=== PATIENT | male | born 1955 | race Two or more races ===

== ENCOUNTER 2018-04-17 17:03 | Inpatient (IN) | payer MEDICARE, MEDICAID ==
[~2018-04-17] VITALS: Ht 162.6 cm; Wt 83.6 kg
[2018-04-17 20:00] VITALS: BP 164/64
[2018-04-17] MEDS ORDERED: LISINOPRIL20 MG ORAL (20:23)
[2018-04-17] MEDS ORDERED: BYSTOLIC5 MG ORAL (20:23)
[2018-04-17] MEDS ORDERED: COREG25 MG ORAL (20:23)
[2018-04-17] MEDS ORDERED: ASPIRIN-LOW81 MG ORAL (20:23)
[2018-04-17] MEDS: Heparin 5000 units/ml inj SUBQ SCH (20:49)
[2018-04-17] MEDS: Carvedilol 25mg Tab ORAL SCH (20:51)
[2018-04-17 23:56] VITALS: BP 141/52
[2018-04-18 04:00] VITALS: BP 142/66
[2018-04-18] MEDS: NovoLOG Insulin Flexpen SUBQ SCH ×4 (05:52→20:35)
[2018-04-18 07:17] LABS: BASOPHILS % (AUTO) 1.1 % (0.0-2.0); HEMATOCRIT 35.1 % (42.0-52.0); HEMOGLOBIN 11.6 G/DL (14.2-18.0); LYMPHOCYTES % (AUTO) 13.3 % (20.0-45.0); MEAN CORPUSCULAR VOLUME 92 FL (80-99); MONOCYTES % (AUTO) 6.6 % (1.0-10.0); PLATELET COUNT 196 K/UL (150-450); RED BLOOD COUNT 3.82 M/UL (4.70-6.10); RED CELL DISTRIBUTION WIDTH 14.4 % (11.6-14.8); WHITE BLOOD COUNT 9.1 K/UL (4.8-10.8)
[2018-04-18 07:51] LABS: ALANINE AMINOTRANSFERASE 13 U/L (12-78); ALBUMIN 3.5 G/DL (3.4-5.0); ALBUMIN/GLOBULIN RATIO 0.8 (1.0-2.7); ALKALINE PHOSPHATASE 76 U/L (46-116); ANION GAP 10 mmol/L (5-15); ASPARTATE AMINO TRANSFERASE 11 U/L (15-37); BILIRUBIN,TOTAL 0.3 MG/DL (0.2-1.0); BLOOD UREA NITROGEN 69 mg/dL (7-18); CALCIUM 8.3 MG/DL (8.5-10.1); CARBON DIOXIDE 30 MMOL/L (21-32); CHLORIDE 99 MMOL/L (98-107); CREATININE 10.9 MG/DL (0.55-1.30); PHOSPHORUS 3.5 MG/DL (2.5-4.9); POTASSIUM 4.7 MMOL/L (3.5-5.1); SODIUM 138 MMOL/L (136-145)
[2018-04-18 08:00] VITALS: BP 136/61
[2018-04-18] MEDS: Aspirin Baby 81mg ORAL SCH (08:23)
[2018-04-18] MEDS: Sensipar 30mg Tab ORAL SCH (08:23)
[2018-04-18] MEDS: Carvedilol 25mg Tab ORAL SCH ×2 (08:23→20:53)
[2018-04-18] MEDS: Nephrovite tab (Rena-Vite) ORAL SCH (08:23)
[2018-04-18] MEDS: Lisinopril 20mg tab ORAL SCH (08:24)
[2018-04-18] MEDS: Heparin 5000 units/ml inj SUBQ SCH ×3 (08:27→21:00)
[2018-04-18] MEDS ORDERED: Lanthanum 1000mg tab ORAL SCH (09:00)
--- NOTE | 2018-04-18 09:58 | Consultation ---
Consult Note Consult Note Icelandic speaker- history taken via screw down on HD for over 10 years poor historian graft left arm DM and HTN had eye surgeries examined data reviewed Assessment/Plan ESRD HD in am BP and HR check / monitor Per orders Tyler Donis MD Apr 18, 2018 09:58
--- NOTE | 2018-04-18 10:53 | Cardiac Electrophysiology PN ---
Subjective Subjective [id number] Objective Last 24 Hour Vital Signs Date Time Temp Pulse Resp B/P (MAP) Pulse Ox O2 Delivery O2 Flow Rate FiO2 04/18/18 09:39 Room Air 04/18/18 08:24 136/61 04/18/18 08:23 76 136/61 04/18/18 08:00 98.4 76 18 136/61 (86) 96 04/18/18 08:00 69 04/18/18 04:00 98.3 70 18 142/66 (91) 98 04/18/18 04:00 67 04/18/18 00:00 69 04/17/18 23:56 97.9 71 20 141/52 (81) 98 04/17/18 20:51 72 165/85 04/17/18 20:00 97.9 74 21 164/64 (97) 99 04/17/18 20:00 70 04/17/18 19:12 Room Air Intake and Output 04/17/18 04/18/18 18:59 06:59 Intake Total 260 ml Balance 260 ml Intake Oral 260 ml # Voids 1 Laboratory Tests Test 04/18/18 05:42 White Blood Count 9.1 K/UL (4.8-10.8) Red Blood Count 3.82 M/UL (4.70-6.10) L Hemoglobin 11.6 G/DL (14.2-18.0) L Hematocrit 35.1 % (42.0-52.0) L Mean Corpuscular Volume 92 FL (80-99) Mean Corpuscular Hemoglobin 30.4 PG (27.0-31.0) Mean Corpuscular Hemoglobin Concent 33.1 G/DL (32.0-36.0) Red Cell Distribution Width 14.4 % (11.6-14.8) Platelet Count 196 K/UL (150-450) Mean Platelet Volume 7.8 FL (6.5-10.1) Neutrophils (%) (Auto) 77.0 % (45.0-75.0) H Lymphocytes (%) (Auto) 13.3 % (20.0-45.0) L Monocytes (%) (Auto) 6.6 % (1.0-10.0) Eosinophils (%) (Auto) 2.0 % (0.0-3.0) Basophils (%) (Auto) 1.1 % (0.0-2.0) Sodium Level 138 MMOL/L (136-145) Potassium Level 4.7 MMOL/L (3.5-5.1) Chloride Level 99 MMOL/L (98-107) Carbon Dioxide Level 30 MMOL/L (21-32) Anion Gap 10 mmol/L (5-15) Blood Urea Nitrogen 69 mg/dL (7-18) H Creatinine 10.9 MG/DL (0.55-1.30) H Estimat Glomerular Filtration Rate 4.8 mL/min (>60) Glucose Level 98 MG/DL (74-106) Hemoglobin A1c 5.6 % (4.3-6.0) Calcium Level 8.3 MG/DL (8.5-10.1) L Phosphorus Level 3.5 MG/DL (2.5-4.9) Magnesium Level 2.7 MG/DL (1.8-2.4) H Total Bilirubin 0.3 MG/DL (0.2-1.0) Aspartate Amino Transf (AST/SGOT) 11 U/L (15-37) L Alanine Aminotransferase (ALT/SGPT) 13 U/L (12-78) Alkaline Phosphatase 76 U/L (46-116) Troponin I 0.039 ng/mL (0.000-0.056) C-Reactive Protein, Quantitative 0.7 mg/dL (0.00-0.90) Total Protein 8.0 G/DL (6.4-8.2) Albumin 3.5 G/DL (3.4-5.0) Globulin 4.5 g/dL Albumin/Globulin Ratio 0.8 (1.0-2.7) Srikanth Jones MD Apr 18, 2018 10:53
[2018-04-18 12:00] VITALS: BP 140/63
--- NOTE | 2018-04-18 12:37 | Consultation ---
History of Present Illness General Date patient seen: Apr 18, 2018 Present Illness HPI 62 year old male with hx of ESRF on HD for over 10 years, poor historian, graft left arm, DM and HTN was taken by paramedics to [place] with CC of syncope. Pt is poor historian and doesn't know much. (medical records accompanying pt is entails only case management notes and efforts and doesn't have neither physician note, nor test study results). Allergies: Coded Allergies: NO KNOWN ALLERGIES (Verified Allergy, Unknown, 04/17/18) Medication History Scheduled Aspirin (Aspirin EC), 81 MG ORAL DAILY, (Reported) Carvedilol (Coreg), 25 MG ORAL EVERY 12 HOURS, (Reported) Lisinopril (Lisinopril*), 20 MG ORAL DAILY, (Reported) Nebivolol Hcl (Bystolic), 5 MG ORAL DAILY, (Reported) Patient History Healthcare decision maker N Resuscitation status Full Code Advanced Directive on File No Past Medical/Surgical History Past Medical/Surgical History: (1) Diabetes mellitus (2) ESRD (end stage renal disease) (3) History of hypertension Review of Systems All Other Systems: negative except mentioned in HPI Physical Exam General Appearance: WD/WN Lines, tubes and drains: peripheral HEENT: normocephalic, atraumatic Neck: non-tender, normal alignment Respiratory/Chest: chest wall non-tender, lungs clear Breasts: no masses Cardiovascular/Chest: normal peripheral pulses Abdomen: normal bowel sounds, non tender Genitourinary/Rectal: normal genital exam Extremities: normal range of motion Skin Exam: normal pigmentation Last 24 Hour Vital Signs Date Time Temp Pulse Resp B/P (MAP) Pulse Ox O2 Delivery O2 Flow Rate FiO2 04/18/18 12:00 98.1 67 18 140/63 (88) 98 04/18/18 09:39 Room Air 04/18/18 08:24 136/61 04/18/18 08:23 76 136/61 04/18/18 08:00 98.4 76 18 136/61 (86) 96 04/18/18 08:00 69 04/18/18 04:00 98.3 70 18 142/66 (91) 98 04/18/18 04:00 67 04/18/18 00:00 69 04/17/18 23:56 97.9 71 20 141/52 (81) 98 04/17/18 20:51 72 165/85 04/17/18 20:00 97.9 74 21 164/64 (97) 99 04/17/18 20:00 70 04/17/18 19:12 Room Air Intake and Output 04/17/18 04/18/18 19:00 07:00 Intake Total 260 ml Balance 260 ml Intake Oral 260 ml # Voids 1 Laboratory Tests Test 04/18/18 05:42 White Blood Count 9.1 K/UL (4.8-10.8) Red Blood Count 3.82 M/UL (4.70-6.10) L Hemoglobin 11.6 G/DL (14.2-18.0) L Hematocrit 35.1 % (42.0-52.0) L Mean Corpuscular Volume 92 FL (80-99) Mean Corpuscular Hemoglobin 30.4 PG (27.0-31.0) Mean Corpuscular Hemoglobin Concent 33.1 G/DL (32.0-36.0) Red Cell Distribution Width 14.4 % (11.6-14.8) Platelet Count 196 K/UL (150-450) Mean Platelet Volume 7.8 FL (6.5-10.1) Neutrophils (%) (Auto) 77.0 % (45.0-75.0) H Lymphocytes (%) (Auto) 13.3 % (20.0-45.0) L Monocytes (%) (Auto) 6.6 % (1.0-10.0) Eosinophils (%) (Auto) 2.0 % (0.0-3.0) Basophils (%) (Auto) 1.1 % (0.0-2.0) Sodium Level 138 MMOL/L (136-145) Potassium Level 4.7 MMOL/L (3.5-5.1) Chloride Level 99 MMOL/L (98-107) Carbon Dioxide Level 30 MMOL/L (21-32) Anion Gap 10 mmol/L (5-15) Blood Urea Nitrogen 69 mg/dL (7-18) H Creatinine 10.9 MG/DL (0.55-1.30) H Estimat Glomerular Filtration Rate 4.8 mL/min (>60) Glucose Level 98 MG/DL (74-106) Hemoglobin A1c 5.6 % (4.3-6.0) Calcium Level 8.3 MG/DL (8.5-10.1) L Phosphorus Level 3.5 MG/DL (2.5-4.9) Magnesium Level 2.7 MG/DL (1.8-2.4) H Total Bilirubin 0.3 MG/DL (0.2-1.0) Aspartate Amino Transf (AST/SGOT) 11 U/L (15-37) L Alanine Aminotransferase (ALT/SGPT) 13 U/L (12-78) Alkaline Phosphatase 76 U/L (46-116) Troponin I 0.039 ng/mL (0.000-0.056) C-Reactive Protein, Quantitative 0.7 mg/dL (0.00-0.90) Total Protein 8.0 G/DL (6.4-8.2) Albumin 3.5 G/DL (3.4-5.0) Globulin 4.5 g/dL Albumin/Globulin Ratio 0.8 (1.0-2.7) L Height (Feet): 5 Height (Inches): 4.00 Weight (Pounds): 184 Medications Current Medications Medications (Trade) Dose Ordered Sig/[place] Route PRN Reason Start Time Stop Time Status Last Admin Dose Admin Acetaminophen (Tylenol) 650 mg Q6H PRN ORAL Mild Pain/Temp > 100.5 04/17/18 23:45 05/17/18 23:44 Aspirin (ASA) 81 mg DAILY ORAL 04/18/18 09:00 05/18/18 08:59 04/18/18 08:23 Atorvastatin Calcium (Lipitor) 10 mg BEDTIME ORAL 04/18/18 21:00 05/18/18 20:59 Carvedilol (Coreg) 25 mg EVERY 12 HOURS ORAL 04/17/18 21:00 05/17/18 20:59 04/18/18 08:23 Cinacalcet (Sensipar) 30 mg DAILY ORAL 04/18/18 09:00 05/18/18 08:59 04/18/18 08:23 Clonidine HCl (Catapres Tab) 0.1 mg Q4H PRN ORAL For High Blood Pressure 04/17/18 20:15 05/17/18 20:14 Dextrose (Dextrose 50%) 25 ml Q30M PRN IV Hypoglycemia 04/17/18 23:45 05/17/18 23:44 Dextrose (Dextrose 50%) 50 ml Q30M PRN IV Hypoglycemia 04/17/18 23:45 05/17/18 23:44 Folic Acid (Folate) 1 mg DAILY ORAL 04/18/18 09:00 05/18/18 08:59 04/18/18 08:24 Heparin Sodium (Porcine) (Heparin 5000 units/ml) 5,000 units EVERY 12 HOURS SUBQ 04/17/18 21:00 05/17/18 20:59 04/18/18 08:27 Insulin Aspart (NovoLOG) BEFORE MEALS AND HS SUBQ 04/18/18 06:30 05/18/18 06:29 Lisinopril (Prinivil) 20 mg DAILY ORAL 04/18/18 09:00 05/18/18 08:59 04/18/18 08:24 Sevelamer Carbonate (Renvela) 800 mg THREE TIMES A DAY ORAL 04/18/18 09:00 05/18/18 08:59 04/18/18 12:08 Vitamin B Complex/ Vit C/Folic Acid (Nephrovite) 1 tab DAILY ORAL 04/18/18 09:00 05/18/18 08:59 04/18/18 08:23 Assessment/Plan Problem List: (1) Acute encephalopathy ICD Codes: G93.40 - Encephalopathy, unspecified SNOMED: 45028663, 785086489 (2) History of hypertension ICD Codes: Z86.79 - Personal history of other diseases of the circulatory system SNOMED: 117822678 (3) ESRD (end stage renal disease) ICD Codes: N18.6 - End stage renal disease SNOMED: 86097333 (4) Diabetes mellitus ICD Codes: E11.9 - Type 2 diabetes mellitus without complications SNOMED: 46706784 (5) Poor historian ICD Codes: Z78.9 - Other specified health status SNOMED: 092531409 Assessment/Plan echo, doppler of carotid artery HD by nephrology sliding scale diabetic diet symptomatic treatment Margarette Ortiz MD Apr 18, 2018 12:37
[2018-04-18 16:00] VITALS: BP 157/67
[2018-04-18] MEDS ORDERED: TRADJENTA5 MG PO ×2 (18:14→18:21)
[2018-04-18] MEDS ORDERED: RENVELA800 MG ORAL (18:25)
[2018-04-18] MEDS ORDERED: FULL SPECTRUM0.8 MG PO (18:25)
[2018-04-18] MEDS ORDERED: SIMVASTATIN40 MG ORAL (18:25)
--- NOTE | 2018-04-18 19:45 | Consultation ---
DATE OF CONSULTATION: 04/18/2018 CARDIOLOGY CONSULTATION CONSULTING PHYSICIAN: Srikanth Wise M.D. REFERRING PHYSICIAN: Vic Luu M.D. REASON FOR CONSULTATION: Hypertension and the patient with syncope. HISTORY OF PRESENT ILLNESS: The patient is a 62-year-old gentleman with history of hypertension, diabetes, end-stage renal disease, on hemodialysis, who was taken to [facility] after the patient had a syncopal episode. The patient was then transferred to [facility]. At the time of my evaluation, the patient denies any chest pain, palpitation, or shortness of breath. The syncope was during dialysis, but he did not have any chest pain or shortness of breath. No fever or cough. The patient denies any prior myocardial infarction or coronary artery disease. REVIEW OF SYSTEMS: Review of systems was negative other than what was mentioned in the history of present illness. PAST MEDICAL HISTORY: As mentioned above. FAMILY HISTORY: Noncontributory. SOCIAL HISTORY: He does not smoke or drink alcohol. PHYSICAL EXAMINATION: VITAL SIGNS: Blood pressure is 136/61, pulse is 70, respirations 18, and temperature 98.4. HEAD AND NECK: Showed no JVD. LUNGS: Clear. CARDIOVASCULAR: Shows regular S1 and S2 with no gallop or murmur. ABDOMEN: Soft. EXTREMITIES: No pitting edema. LABORATORY DATA: White count of 9.5, hemoglobin 11.6, hematocrit 35.1, and platelet count of 196,000. Sodium 138, potassium 4.7, BUN of 69, hematocrit of 10.9, and glucose of 98. The first troponin is negative. ASSESSMENT AND PLAN: 1. Status post syncope. Troponin at [place] as well as here is negative. The patient was ruled out for myocardial infarction. We will repeat EKG and get an echocardiogram. He will have orthostatic vital signs for further evaluation. 2. Hypertension. Continue lisinopril 20 mg daily, Coreg 25 mg b.i.d., and hemodialysis. 3. End-stage renal disease, on hemodialysis. 4. Hyperlipidemia, on Lipitor. Thank you very much, Dr. Luu, for allowing me to participate in the care of this patient. Please do not hesitate to contact for any questions regarding my evaluation. Srikanth Wise M.D. DR: Shahab JOB#: [id number] CC:
[2018-04-18 20:00] VITALS: BP 150/61
--- NOTE | 2018-04-18 20:03 | History & Physical ---
History and Physical History & Physicial dictated for Int Med-Dr Luu no. [id number]. Aguila Hartman MD Apr 18, 2018 20:03
--- NOTE | 2018-04-18 22:48 | Consultation ---
History of Present Illness Present Illness HPI 62 year old male with hx of depression, ESRF , graft left arm, DM and HTN was taken by paramedics to [place] with CC of syncope. the pt is Macanese speaking and was not able to provide a meaningful hx. the pt c/o low energy and depression. the pt in addition has poor cognition. he has poor insight. Allergies: Coded Allergies: NO KNOWN ALLERGIES (Verified Allergy, Unknown, 04/17/18) Medication History Scheduled Aspirin (Aspirin EC), 81 MG ORAL DAILY, (Reported) Carvedilol (Coreg), 25 MG ORAL EVERY 12 HOURS, (Reported) Folic Acid/Vitamin B Comp W-C (Full Spectrum B With Vit C Tab), 0.8 MG PO DAILY, (Reported) Linagliptin (Tradjenta), 5 MG PO DAILY, (Reported) Lisinopril (Lisinopril*), 20 MG ORAL DAILY, (Reported) Nebivolol Hcl (Bystolic), 5 MG ORAL DAILY, (Reported) Sevelamer Carbonate (Renvela), 800 MG ORAL THREE TIMES A DAY, (Reported) Simvastatin (Zocor), 40 MG ORAL BEDTIME, (Reported) Patient History Limited by: medical condition History Provided By: Patient, Medical Record, PMD Healthcare decision maker N Resuscitation status Full Code Advanced Directive on File No Past Medical/Surgical History Past Medical/Surgical History: (1) Syncope (2) Diabetes mellitus (3) ESRD (end stage renal disease) (4) History of hypertension (5) Poor historian (6) Acute encephalopathy Review of Systems Psychiatric: Reports: prior hx, anxiety, depressed feelings Physical Exam General Appearance: no apparent distress, alert, obese Neurologic: depressed affect Last 24 Hour Vital Signs Date Time Temp Pulse Resp B/P (MAP) Pulse Ox O2 Delivery O2 Flow Rate FiO2 04/18/18 20:53 71 150/61 04/18/18 20:00 98.4 71 18 150/61 (90) 97 04/18/18 20:00 70 04/18/18 16:00 98.1 76 18 157/67 (97) 99 04/18/18 16:00 68 04/18/18 12:00 68 04/18/18 12:00 98.1 67 18 140/63 (88) 98 04/18/18 09:39 Room Air 04/18/18 08:24 136/61 04/18/18 08:23 76 136/61 04/18/18 08:00 98.4 76 18 136/61 (86) 96 04/18/18 08:00 69 04/18/18 04:00 98.3 70 18 142/66 (91) 98 04/18/18 04:00 67 04/18/18 00:00 69 04/17/18 23:56 97.9 71 20 141/52 (81) 98 Intake and Output 04/17/18 04/18/18 19:00 07:00 Intake Total 260 ml Balance 260 ml Intake Oral 260 ml # Voids 1 Laboratory Tests Test 04/18/18 05:42 White Blood Count 9.1 K/UL (4.8-10.8) Red Blood Count 3.82 M/UL (4.70-6.10) L Hemoglobin 11.6 G/DL (14.2-18.0) L Hematocrit 35.1 % (42.0-52.0) L Mean Corpuscular Volume 92 FL (80-99) Mean Corpuscular Hemoglobin 30.4 PG (27.0-31.0) Mean Corpuscular Hemoglobin Concent 33.1 G/DL (32.0-36.0) Red Cell Distribution Width 14.4 % (11.6-14.8) Platelet Count 196 K/UL (150-450) Mean Platelet Volume 7.8 FL (6.5-10.1) Neutrophils (%) (Auto) 77.0 % (45.0-75.0) H Lymphocytes (%) (Auto) 13.3 % (20.0-45.0) L Monocytes (%) (Auto) 6.6 % (1.0-10.0) Eosinophils (%) (Auto) 2.0 % (0.0-3.0) Basophils (%) (Auto) 1.1 % (0.0-2.0) Sodium Level 138 MMOL/L (136-145) Potassium Level 4.7 MMOL/L (3.5-5.1) Chloride Level 99 MMOL/L (98-107) Carbon Dioxide Level 30 MMOL/L (21-32) Anion Gap 10 mmol/L (5-15) Blood Urea Nitrogen 69 mg/dL (7-18) H Creatinine 10.9 MG/DL (0.55-1.30) H Estimat Glomerular Filtration Rate 4.8 mL/min (>60) Glucose Level 98 MG/DL (74-106) Hemoglobin A1c 5.6 % (4.3-6.0) Calcium Level 8.3 MG/DL (8.5-10.1) L Phosphorus Level 3.5 MG/DL (2.5-4.9) Magnesium Level 2.7 MG/DL (1.8-2.4) H Total Bilirubin 0.3 MG/DL (0.2-1.0) Aspartate Amino Transf (AST/SGOT) 11 U/L (15-37) L Alanine Aminotransferase (ALT/SGPT) 13 U/L (12-78) Alkaline Phosphatase 76 U/L (46-116) Troponin I 0.039 ng/mL (0.000-0.056) C-Reactive Protein, Quantitative 0.7 mg/dL (0.00-0.90) Total Protein 8.0 G/DL (6.4-8.2) Albumin 3.5 G/DL (3.4-5.0) Globulin 4.5 g/dL Albumin/Globulin Ratio 0.8 (1.0-2.7) L Height (Feet): 5 Height (Inches): 4.00 Weight (Pounds): 184 Medications Current Medications Medications (Trade) Dose Ordered Sig/[place] Route PRN Reason Start Time Stop Time Status Last Admin Dose Admin Acetaminophen (Tylenol) 650 mg Q6H PRN ORAL Mild Pain/Temp > 100.5 04/17/18 23:45 05/17/18 23:44 Aspirin (ASA) 81 mg DAILY ORAL 04/18/18 09:00 05/18/18 08:59 04/18/18 08:23 Atorvastatin Calcium (Lipitor) 10 mg BEDTIME ORAL 04/18/18 21:00 05/18/18 20:59 04/18/18 20:53 Carvedilol (Coreg) 25 mg EVERY 12 HOURS ORAL 04/17/18 21:00 05/17/18 20:59 04/18/18 20:53 Cinacalcet (Sensipar) 30 mg DAILY ORAL 04/18/18 09:00 05/18/18 08:59 04/18/18 08:23 Clonidine HCl (Catapres Tab) 0.1 mg Q4H PRN ORAL For High Blood Pressure 04/17/18 20:15 05/17/18 20:14 Dextrose (Dextrose 50%) 25 ml Q30M PRN IV Hypoglycemia 04/17/18 23:45 05/17/18 23:44 Dextrose (Dextrose 50%) 50 ml Q30M PRN IV Hypoglycemia 04/17/18 23:45 05/17/18 23:44 Folic Acid (Folate) 1 mg DAILY ORAL 04/18/18 09:00 05/18/18 08:59 04/18/18 08:24 Heparin Sodium (Porcine) (Heparin 5000 units/ml) 5,000 units EVERY 12 HOURS SUBQ 04/17/18 21:00 05/17/18 20:59 04/18/18 08:27 Insulin Aspart (NovoLOG) BEFORE MEALS AND HS SUBQ 04/18/18 06:30 05/18/18 06:29 Lisinopril (Prinivil) 20 mg DAILY ORAL 04/18/18 09:00 05/18/18 08:59 04/18/18 08:24 Patient Own Medication (Patient's Own Med) 1 ea DAILY ORAL 04/19/18 09:00 05/19/18 08:59 Sevelamer Carbonate (Renvela) 800 mg THREE TIMES A DAY ORAL 04/18/18 09:00 05/18/18 08:59 04/18/18 17:17 Vitamin B Complex/ Vit C/Folic Acid (Nephrovite) 1 tab DAILY ORAL 04/18/18 09:00 05/18/18 08:59 04/18/18 08:23 Assessment/Plan Problem List: (1) Major depressive disorder ICD Codes: F32.9 - Major depressive disorder, single episode, unspecified SNOMED: 232290823 (2) encephalopathy due to toxin Status: stable Assessment/Plan will start the pt on prozac provided the pt with dominick/Yolie Omalley MD Apr 18, 2018 22:48
[2018-04-19] VITALS: BP 147/60
--- NOTE | 2018-04-19 03:30 | History and Physical Report ---
DATE OF ADMISSION: 04/17/2018 CHIEF COMPLAINT: The patient is a 62-year-old male who presents with chief complaint of syncopal episode. HISTORY OF PRESENT ILLNESS: The patient has a history of end-stage renal disease. The patient was in dialysis yesterday, 04/17/2018. The patient had a syncopal episode. EMS was called. The patient was taken initially to [facility] Emergency Room. The patient is transferred to [facility] for insurance purposes. The patient presents today with a chief complaint of syncopal episode. REVIEW OF SYSTEMS: CONSTITUTIONAL: The patient denies weight loss or weight gain. The patient denies fevers or chills. HEENT: The patient denies ear or throat pain. The patient has headache. CARDIOVASCULAR: The patient denies palpitations or chest pain. CHEST: Denies wheeze or shortness of breath. ABDOMEN: The patient denies nausea, vomiting, or constipation. GENITOURINARY: The patient denies dysuria or increased frequency of urination. NEUROMUSCULAR: The patient denies seizures. The patient complains of syncopal episode as above. PAST MEDICAL HISTORY: Significant for: 1. End-stage renal disease, on hemodialysis every Sunday, Sunday, and Sunday. 2. Hypertension. 3. Diabetes type 2. PAST SURGICAL HISTORY: Significant for arteriovenous graft placement for dialysis. CURRENT MEDICATIONS: 1. Aspirin 81 mg one tablet p.o. daily. 2. Coreg 25 mg p.o. twice daily. 3. Folic acid/vitamin B complex one tablet p.o. daily. 4. Tradjenta 5 mg p.o. daily. 5. Lisinopril 20 mg p.o. daily. 6. Bystolic 5 mg p.o. daily. 7. Renvela 800 mg p.o. three times daily. 8. Simvastatin 40 mg p.o. nightly. ALLERGIES: No known drug allergies. SOCIAL HISTORY: The patient is single. The patient denies tobacco or alcohol use. PHYSICAL EXAMINATION: VITAL SIGNS: Temperature 98.4, respirations 18, pulse 76, and blood pressure 136/61. GENERAL: The patient is a well-developed and well-nourished male, in no apparent distress. HEENT: Eyes, pupils equal and responsive to light and accommodation. Extraocular movements are intact. NECK: Supple without lymphadenopathy. CHEST: Lungs are clear to auscultation bilaterally without wheezes or rales. CARDIOVASCULAR: Regular rhythm and rate. S1 and S2 normal without murmurs, rubs, or gallops. ABDOMEN: Soft, nontender, and nondistended. Positive bowel sounds. No evidence of hepatosplenomegaly. Currently, no rebound or guarding noted. EXTREMITIES: Negative for clubbing, cyanosis, or edema. RECTAL: Refused. GENITAL: Refused. NEUROLOGIC: Cranial nerves II through XII are grossly intact without focal deficits. Motor strength is 5/5 bilaterally. Deep tendon reflexes are 2+ plantar. LABORATORY STUDIES: WBC 15.9, hemoglobin 12.5, hematocrit 37.8, and platelets 190,000. Sodium 135, potassium 5.1, chloride 93, CO2 29, BUN 48, creatinine 8.35, glucose 131, and troponin . ASSESSMENT: This is a 62-year-old male. 1. Syncopal episode. 2. Diabetes type 2. 3. End-stage renal disease. 4. Hypertension. 5. Hypercholesterolemia. TREATMENT: 1. Syncopal episode. A Cardiology consultation with Dr. Srikanth Wise. Differential includes myocardial infarction versus cerebrovascular accident. We will follow recommendation of Cardiology. 2. Diabetes type 2. The patient has been placed on NovoLog sliding scale. 3. End-stage renal disease. A nephrology consultation has been obtained with Dr. Donis. The patient is status post dialysis yesterday. The patient will require dialysis every Sunday, Sunday, and Sunday while in the hospital. 4. Hypertension. Continue Coreg as above. 5. Hypercholesterolemia. Continue Lipitor as above. Aguila Hartman M.D. DR: KARENA JOB#: [id number] CC:
[2018-04-19 04:00] VITALS: BP 145/66
[2018-04-19 05:22] LABS: BASOPHILS % (AUTO) 0.9 % (0.0-2.0); EOSINOPHILS % (AUTO) 2.4 % (0.0-3.0); HEMATOCRIT 32.8 % (42.0-52.0); HEMOGLOBIN 10.7 G/DL (14.2-18.0); LYMPHOCYTES % (AUTO) 16.1 % (20.0-45.0); MEAN CORPUSCULAR VOLUME 94 FL (80-99); MONOCYTES % (AUTO) 8.1 % (1.0-10.0); NEUTROPHILS % (AUTO) 72.5 % (45.0-75.0); PLATELET COUNT 182 K/UL (150-450); RED BLOOD COUNT 3.49 M/UL (4.70-6.10); RED CELL DISTRIBUTION WIDTH 14.4 % (11.6-14.8); WHITE BLOOD COUNT 9.7 K/UL (4.8-10.8)
[2018-04-19 05:53] LABS: ALANINE AMINOTRANSFERASE 16 U/L (12-78); ALBUMIN 3.3 G/DL (3.4-5.0); ALBUMIN/GLOBULIN RATIO 0.8 (1.0-2.7); ALKALINE PHOSPHATASE 71 U/L (46-116); ANION GAP 11 mmol/L (5-15); ASPARTATE AMINO TRANSFERASE 5 U/L (15-37); BILIRUBIN,TOTAL 0.3 MG/DL (0.2-1.0); BLOOD UREA NITROGEN 91 mg/dL (7-18); CARBON DIOXIDE 28 MMOL/L (21-32); CHLORIDE 99 MMOL/L (98-107); CHOLESTEROL 82 MG/DL (< 200); CREATININE 12.5 MG/DL (0.55-1.30); FERRITIN 1195 NG/ML (8-388); GAMMA GLUTAMYL TRANSPEPTIDASE 20 U/L (5-85); HDL CHOLESTEROL 40 MG/DL (40-60); PHOSPHORUS 3.3 MG/DL (2.5-4.9); POTASSIUM 5.3 MMOL/L (3.5-5.1); SODIUM 138 MMOL/L (136-145); TRIGLYCERIDES 101 MG/DL (30-150)
[2018-04-19 06:09] LABS: % IRON SATURATION 30 % (15-50); IRON 53 ug/dL (50-175); TOTAL IRON BINDING CAPACITY 177 ug/dL (250-450)
[2018-04-19] MEDS: NovoLOG Insulin Flexpen SUBQ SCH ×2 (06:30→11:30)
[2018-04-19 08:00] VITALS: BP 164/69
[2018-04-19] MEDS: Aspirin Baby 81mg ORAL SCH (08:13)
[2018-04-19] MEDS: Sensipar 30mg Tab ORAL SCH (08:13)
[2018-04-19] MEDS: Nephrovite tab (Rena-Vite) ORAL SCH (08:13)
[2018-04-19] MEDS: Carvedilol 25mg Tab ORAL SCH (08:16)
[2018-04-19] MEDS: Lisinopril 20mg tab ORAL SCH (08:17)
[2018-04-19] MEDS: Heparin 5000 units/ml inj SUBQ SCH (08:18)
--- NOTE | 2018-04-19 11:15 | Nephrology Progress Note ---
Assessment/Plan Problem List: (1) ESRD (end stage renal disease) (2) Syncope (3) Hypertensive kidney disease Assessment (1) Acute encephalopathy (2) History of hypertension (3) ESRD (end stage renal disease) (4) Diabetes mellitus (5) Poor historia Plan on HD now adjust BP and HR Subjective ROS Limited/Unobtainable: No Constitutional: Reports: malaise Objective Objective Last 24 Hour Vital Signs Date Time Temp Pulse Resp B/P (MAP) Pulse Ox O2 Delivery O2 Flow Rate FiO2 04/19/18 09:00 Room Air 04/19/18 08:00 97.0 71 21 164/69 (100) 97 04/19/18 08:00 75 04/19/18 04:00 64 04/19/18 04:00 98.3 69 18 145/66 (92) 97 04/19/18 00:00 98.1 66 18 147/60 (89) 97 04/19/18 00:00 65 04/18/18 21:00 Room Air 04/18/18 20:53 71 150/61 04/18/18 20:00 98.4 71 18 150/61 (90) 97 04/18/18 20:00 70 04/18/18 16:00 98.1 76 18 157/67 (97) 99 04/18/18 16:00 68 04/18/18 12:00 68 04/18/18 12:00 98.1 67 18 140/63 (88) 98 Intake and Output 04/18/18 04/19/18 18:59 06:59 Intake Total 360 ml Balance 360 ml Intake Oral 360 ml # Voids 1 Laboratory Tests 04/19/18 04:59: White Blood Count 9.7, Red Blood Count 3.49L, Hemoglobin 10.7L, Hematocrit 32.8L , Mean Corpuscular Volume 94, Mean Corpuscular Hemoglobin 30.6, Mean Corpuscular Hemoglobin Concent 32.5, Red Cell Distribution Width 14.4, Platelet Count 182, Mean Platelet Volume 7.4, Neutrophils (%) (Auto) 72.5, Lymphocytes (% ) (Auto) 16.1L, Monocytes (%) (Auto) 8.1, Eosinophils (%) (Auto) 2.4, Basophils (%) (Auto) 0.9, Sodium Level 138, Potassium Level 5.3H, Chloride Level 99, Carbon Dioxide Level 28, Anion Gap 11, Blood Urea Nitrogen 91H, Creatinine 12.5H , Estimat Glomerular Filtration Rate 4.1, Glucose Level 121H, Uric Acid 7.2, Calcium Level 8.0L, Phosphorus Level 3.3, Magnesium Level 2.6H, Iron Level 53, Total Iron Binding Capacity 177L, Percent Iron Saturation 30, Unsaturated Iron Binding 124, Ferritin 1195H, Total Bilirubin 0.3, Gamma Glutamyl Transpeptidase 20, Aspartate Amino Transf (AST/SGOT) 5L, Alanine Aminotransferase (ALT/SGPT) 16 , Alkaline Phosphatase 71, Troponin I 0.025, Pro-B-Type Natriuretic Peptide 25418F, Total Protein 7.5, Albumin 3.3L, Globulin 4.2, Albumin/Globulin Ratio 0.8L, Triglycerides Level 101, Cholesterol Level 82, LDL Cholesterol 39, HDL Cholesterol 40, Cholesterol/HDL Ratio 2.1L, Vitamin B12 Level 880, Folate 19.5, Thyroid Stimulating Hormone (TSH) 1.275 Height (Feet): 5 Height (Inches): 4.00 Weight (Pounds): 184 General Appearance: no apparent distress Objective no change Tyler Donis MD Apr 19, 2018 11:15
--- NOTE | 2018-04-19 11:37 | Pulmonology Progress Note ---
Assessment/Plan Problems: (1) Acute encephalopathy (2) History of hypertension (3) ESRD (end stage renal disease) (4) Diabetes mellitus (5) Poor historian Assessment/Plan no new complains all reviewed HD by nephrology dc planning Subjective ROS Limited/Unobtainable: No Constitutional: Reports: no symptoms HEENT: Repors: no symptoms Respiratory: Reports: no symptoms Allergies: Coded Allergies: NO KNOWN ALLERGIES (Verified Allergy, Unknown, 04/17/18) Objective Last 24 Hour Vital Signs Date Time Temp Pulse Resp B/P (MAP) Pulse Ox O2 Delivery O2 Flow Rate FiO2 04/19/18 09:00 Room Air 04/19/18 08:00 97.0 71 21 164/69 (100) 97 04/19/18 08:00 75 04/19/18 04:00 64 04/19/18 04:00 98.3 69 18 145/66 (92) 97 04/19/18 00:00 98.1 66 18 147/60 (89) 97 04/19/18 00:00 65 04/18/18 21:00 Room Air 04/18/18 20:53 71 150/61 04/18/18 20:00 98.4 71 18 150/61 (90) 97 04/18/18 20:00 70 04/18/18 16:00 98.1 76 18 157/67 (97) 99 04/18/18 16:00 68 04/18/18 12:00 68 04/18/18 12:00 98.1 67 18 140/63 (88) 98 Intake and Output 04/18/18 04/19/18 18:59 06:59 Intake Total 360 ml Balance 360 ml Intake Oral 360 ml # Voids 1 General Appearance: WD/WN HEENT: normocephalic, atraumatic Respiratory/Chest: chest wall non-tender, lungs clear Cardiovascular: normal peripheral pulses, normal rate Abdomen: normal bowel sounds, soft, non tender Genitourinary: normal external genitalia Skin: no rash 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 Lymphatic: no neck adenopathy Laboratory Tests 04/19/18 04:59: White Blood Count 9.7, Red Blood Count 3.49L, Hemoglobin 10.7L, Hematocrit 32.8L , Mean Corpuscular Volume 94, Mean Corpuscular Hemoglobin 30.6, Mean Corpuscular Hemoglobin Concent 32.5, Red Cell Distribution Width 14.4, Platelet Count 182, Mean Platelet Volume 7.4, Neutrophils (%) (Auto) 72.5, Lymphocytes (% ) (Auto) 16.1L, Monocytes (%) (Auto) 8.1, Eosinophils (%) (Auto) 2.4, Basophils (%) (Auto) 0.9, Sodium Level 138, Potassium Level 5.3H, Chloride Level 99, Carbon Dioxide Level 28, Anion Gap 11, Blood Urea Nitrogen 91H, Creatinine 12.5H , Estimat Glomerular Filtration Rate 4.1, Glucose Level 121H, Uric Acid 7.2, Calcium Level 8.0L, Phosphorus Level 3.3, Magnesium Level 2.6H, Iron Level 53, Total Iron Binding Capacity 177L, Percent Iron Saturation 30, Unsaturated Iron Binding 124, Ferritin 1195H, Total Bilirubin 0.3, Gamma Glutamyl Transpeptidase 20, Aspartate Amino Transf (AST/SGOT) 5L, Alanine Aminotransferase (ALT/SGPT) 16 , Alkaline Phosphatase 71, Troponin I 0.025, Pro-B-Type Natriuretic Peptide 09679G, Total Protein 7.5, Albumin 3.3L, Globulin 4.2, Albumin/Globulin Ratio 0.8L, Triglycerides Level 101, Cholesterol Level 82, LDL Cholesterol 39, HDL Cholesterol 40, Cholesterol/HDL Ratio 2.1L, Vitamin B12 Level 880, Folate 19.5, Thyroid Stimulating Hormone (TSH) 1.275 Current Medications Medications (Trade) Dose Ordered Sig/[place] Route PRN Reason Start Time Stop Time Status Last Admin Dose Admin Acetaminophen (Tylenol) 650 mg Q6H PRN ORAL Mild Pain/Temp > 100.5 04/17/18 23:45 05/17/18 23:44 Aspirin (ASA) 81 mg DAILY ORAL 04/18/18 09:00 05/18/18 08:59 04/19/18 08:13 Atorvastatin Calcium (Lipitor) 10 mg BEDTIME ORAL 04/18/18 21:00 05/18/18 20:59 04/18/18 20:53 Carvedilol (Coreg) 25 mg EVERY 12 HOURS ORAL 04/17/18 21:00 05/17/18 20:59 04/18/18 20:53 Cinacalcet (Sensipar) 30 mg DAILY ORAL 04/18/18 09:00 05/18/18 08:59 12/7/18 08:13 Clonidine HCl (Catapres Tab) 0.1 mg Q4H PRN ORAL For High Blood Pressure 04/17/18 20:15 05/17/18 20:14 Dextrose (Dextrose 50%) 25 ml Q30M PRN IV Hypoglycemia 04/17/18 23:45 05/17/18 23:44 Dextrose (Dextrose 50%) 50 ml Q30M PRN IV Hypoglycemia 04/17/18 23:45 05/17/18 23:44 Folic Acid (Folate) 1 mg DAILY ORAL 04/18/18 09:00 05/18/18 08:59 04/19/18 08:12 Heparin Sodium (Porcine) (Heparin 5000 units/ml) 5,000 units EVERY 12 HOURS SUBQ 04/17/18 21:00 05/17/18 20:59 04/18/18 08:27 Insulin Aspart (NovoLOG) BEFORE MEALS AND HS SUBQ 04/18/18 06:30 05/18/18 06:29 Lisinopril (Prinivil) 20 mg BID ORAL 04/19/18 18:00 05/18/18 08:59 Patient Own Medication (Patient's Own Med) 1 ea DAILY ORAL 04/19/18 09:00 05/19/18 08:59 04/19/18 08:12 Quetiapine Fumarate (SEROquel) 25 mg EVERY 6 HOURS PRN ORAL For Anxiety 04/18/18 22:45 05/18/18 22:44 Sevelamer Carbonate (Renvela) 800 mg THREE TIMES A DAY ORAL 04/18/18 09:00 05/18/18 08:59 04/19/18 08:13 Vitamin B Complex/ Vit C/Folic Acid (Nephrovite) 1 tab DAILY ORAL 04/18/18 09:00 05/18/18 08:59 04/19/18 08:13 Margarette Ortiz MD Apr 19, 2018 11:37
--- NOTE | 2018-04-19 11:59 | Diagnostic Imaging Report ---
APPROVED REPORT CPT Code: 75028 Vascular Symptoms Syncope Doppler Spectral Velocity Analysis RightLeft RIGHT SIDE: CCA - Imaging reveals no significant plaque in the common carotid artery. ICA arteries. The Doppler signal indicates the degree of stenosis is mild (30%) in the internal carotid, and (30%) in the external carotid arteries. VERTEBRAL/ SUBCLAVIAN - The vertebral and subclavian arteries are patent, without evidence of stenosis or steal. arteries. The Doppler spectral flow analysis indicates the degree of stenosis is minimal (20%) in the common carotid artery, moderate (40-50%) in the internal carotid artery, and (30%) in the external carotid arteriy. VERTEBRAL/ SUBCLAVIAN - The vertebral and subclavian arteries are patent, without evidence of stenosis or steal.
[2018-04-19 12:00] VITALS: BP 159/66
--- NOTE | 2018-04-19 12:09 | General Progress Note ---
Assessment/Plan Problem List: (1) Major depressive disorder ICD Codes: F32.9 - Major depressive disorder, single episode, unspecified SNOMED: [id number] (2) encephalopathy due to toxin Status: stable, progressing Assessment/Plan will start the pt on prozac provided the pt with ro/st seroquel prn Subjective Neurologic/Psychiatric: Reports: anxiety, depressed Allergies: Coded Allergies: NO KNOWN ALLERGIES (Verified Allergy, Unknown, 04/17/18) Subjective the pts mentation is improved decrease anxiety Objective Last 24 Hour Vital Signs Date Time Temp Pulse Resp B/P (MAP) Pulse Ox O2 Delivery O2 Flow Rate FiO2 04/19/18 09:00 Room Air 04/19/18 08:00 97.0 71 21 164/69 (100) 97 04/19/18 08:00 75 04/19/18 04:00 64 04/19/18 04:00 98.3 69 18 145/66 (92) 97 04/19/18 00:00 98.1 66 18 147/60 (89) 97 04/19/18 00:00 65 04/18/18 21:00 Room Air 04/18/18 20:53 71 150/61 04/18/18 20:00 98.4 71 18 150/61 (90) 97 04/18/18 20:00 70 04/18/18 16:00 98.1 76 18 157/67 (97) 99 04/18/18 16:00 68 Intake and Output 04/18/18 04/19/18 18:59 06:59 Intake Total 360 ml Balance 360 ml Intake Oral 360 ml # Voids 1 Laboratory Tests 04/19/18 04:59: White Blood Count 9.7, Red Blood Count 3.49L, Hemoglobin 10.7L, Hematocrit 32.8L , Mean Corpuscular Volume 94, Mean Corpuscular Hemoglobin 30.6, Mean Corpuscular Hemoglobin Concent 32.5, Red Cell Distribution Width 14.4, Platelet Count 182, Mean Platelet Volume 7.4, Neutrophils (%) (Auto) 72.5, Lymphocytes (% ) (Auto) 16.1L, Monocytes (%) (Auto) 8.1, Eosinophils (%) (Auto) 2.4, Basophils (%) (Auto) 0.9, Sodium Level 138, Potassium Level 5.3H, Chloride Level 99, Carbon Dioxide Level 28, Anion Gap 11, Blood Urea Nitrogen 91H, Creatinine 12.5H , Estimat Glomerular Filtration Rate 4.1, Glucose Level 121H, Uric Acid 7.2, Calcium Level 8.0L, Phosphorus Level 3.3, Magnesium Level 2.6H, Iron Level 53, Total Iron Binding Capacity 177L, Percent Iron Saturation 30, Unsaturated Iron Binding 124, Ferritin 1195H, Total Bilirubin 0.3, Gamma Glutamyl Transpeptidase 20, Aspartate Amino Transf (AST/SGOT) 5L, Alanine Aminotransferase (ALT/SGPT) 16 , Alkaline Phosphatase 71, Troponin I 0.025, Pro-B-Type Natriuretic Peptide 94578J, Total Protein 7.5, Albumin 3.3L, Globulin 4.2, Albumin/Globulin Ratio 0.8L, Triglycerides Level 101, Cholesterol Level 82, LDL Cholesterol 39, HDL Cholesterol 40, Cholesterol/HDL Ratio 2.1L, Vitamin B12 Level 880, Folate 19.5, Thyroid Stimulating Hormone (TSH) 1.275 Height (Feet): 5 Height (Inches): 4.00 Weight (Pounds): 184 General Appearance: no apparent distress, alert, confused - poor historian Yolie Saleh MD Apr 19, 2018 12:09
[2018-04-19] MEDS ORDERED: Tubing IV Secondary IV ONE (13:04)
--- NOTE | 2018-04-19 13:52 | Discharge Summary ---
Discharge Summary Hospital Course Date of Admission Apr 17, 2018 at 18:40 Date of Discharge Apr 19, 2018 at 13:05 Admitting Diagnosis HPI Markel Arellano is a 62 year old male who was admitted on Apr 17, 2018 at 18:40 for Syncope Hospital Course Last 24 Hour Vital Signs Date Time Temp Pulse Resp B/P (MAP) Pulse Ox O2 Delivery O2 Flow Rate FiO2 04/19/18 12:00 97.5 78 21 159/66 (97) 97 04/19/18 09:00 Room Air 04/19/18 08:00 97.0 71 21 164/69 (100) 97 04/19/18 08:00 75 04/19/18 04:00 64 04/19/18 04:00 98.3 69 18 145/66 (92) 97 04/19/18 00:00 98.1 66 18 147/60 (89) 97 04/19/18 00:00 65 04/18/18 21:00 Room Air 04/18/18 20:53 71 150/61 04/18/18 20:00 98.4 71 18 150/61 (90) 97 04/18/18 20:00 70 04/18/18 16:00 98.1 76 18 157/67 (97) 99 04/18/18 16:00 68 Discharge Discharge Disposition Patient was discharged to Home (01) Vic Luu MD Apr 19, 2018 13:52
--- NOTE | 2018-04-19 14:12 | Cardiac Electrophysiology PN ---
Assessment/Plan Assessment/Plan 1. Status post syncope. Ruled out for myocardial infarction. Echocardiogram EF 55%. 2. Hypertension. Continue lisinopril 20 mg daily, Coreg 25 mg b.i.d. and hemodialysis. 3. End-stage renal disease, on hemodialysis. 4. Hyperlipidemia, on Lipitor. Subjective Subjective No events. DC planning in progress Objective Last 24 Hour Vital Signs Date Time Temp Pulse Resp B/P (MAP) Pulse Ox O2 Delivery O2 Flow Rate FiO2 04/19/18 12:00 97.5 78 21 159/66 (97) 97 04/19/18 09:00 Room Air 04/19/18 08:00 97.0 71 21 164/69 (100) 97 04/19/18 08:00 75 04/19/18 04:00 64 04/19/18 04:00 98.3 69 18 145/66 (92) 97 04/19/18 00:00 98.1 66 18 147/60 (89) 97 04/19/18 00:00 65 04/18/18 21:00 Room Air 04/18/18 20:53 71 150/61 04/18/18 20:00 98.4 71 18 150/61 (90) 97 04/18/18 20:00 70 04/18/18 16:00 98.1 76 18 157/67 (97) 99 04/18/18 16:00 68 Intake and Output 04/18/18 04/19/18 18:59 06:59 Intake Total 360 ml Balance 360 ml Intake Oral 360 ml # Voids 1 Laboratory Tests Test 04/19/18 04:59 White Blood Count 9.7 K/UL (4.8-10.8) Red Blood Count 3.49 M/UL (4.70-6.10) L Hemoglobin 10.7 G/DL (14.2-18.0) L Hematocrit 32.8 % (42.0-52.0) L Mean Corpuscular Volume 94 FL (80-99) Mean Corpuscular Hemoglobin 30.6 PG (27.0-31.0) Mean Corpuscular Hemoglobin Concent 32.5 G/DL (32.0-36.0) Red Cell Distribution Width 14.4 % (11.6-14.8) Platelet Count 182 K/UL (150-450) Mean Platelet Volume 7.4 FL (6.5-10.1) Neutrophils (%) (Auto) 72.5 % (45.0-75.0) Lymphocytes (%) (Auto) 16.1 % (20.0-45.0) L Monocytes (%) (Auto) 8.1 % (1.0-10.0) Eosinophils (%) (Auto) 2.4 % (0.0-3.0) Basophils (%) (Auto) 0.9 % (0.0-2.0) Sodium Level 138 MMOL/L (136-145) Potassium Level 5.3 MMOL/L (3.5-5.1) H Chloride Level 99 MMOL/L (98-107) Carbon Dioxide Level 28 MMOL/L (21-32) Anion Gap 11 mmol/L (5-15) Blood Urea Nitrogen 91 mg/dL (7-18) H Creatinine 12.5 MG/DL (0.55-1.30) H Estimat Glomerular Filtration Rate 4.1 mL/min (>60) Glucose Level 121 MG/DL (74-106) H Uric Acid 7.2 MG/DL (2.6-7.2) Calcium Level 8.0 MG/DL (8.5-10.1) L Phosphorus Level 3.3 MG/DL (2.5-4.9) Magnesium Level 2.6 MG/DL (1.8-2.4) H Iron Level 53 ug/dL (50-175) Total Iron Binding Capacity 177 ug/dL (250-450) L Percent Iron Saturation 30 % (15-50) Unsaturated Iron Binding 124 ug/dL (112-346) Ferritin 1195 NG/ML (8-388) H Total Bilirubin 0.3 MG/DL (0.2-1.0) Gamma Glutamyl Transpeptidase 20 U/L (5-85) Aspartate Amino Transf (AST/SGOT) 5 U/L (15-37) L Alanine Aminotransferase (ALT/SGPT) 16 U/L (12-78) Alkaline Phosphatase 71 U/L (46-116) Troponin I 0.025 ng/mL (0.000-0.056) Pro-B-Type Natriuretic Peptide 92981 pg/mL (0-125) H Total Protein 7.5 G/DL (6.4-8.2) Albumin 3.3 G/DL (3.4-5.0) L Globulin 4.2 g/dL Albumin/Globulin Ratio 0.8 (1.0-2.7) L Triglycerides Level 101 MG/DL (30-150) Cholesterol Level 82 MG/DL (< 200) LDL Cholesterol 39 mg/dL (<100) HDL Cholesterol 40 MG/DL (40-60) Cholesterol/HDL Ratio 2.1 (3.3-4.4) L Vitamin B12 Level 880 PG/ML (193-986) Folate 19.5 NG/ML (8.6-58.9) Thyroid Stimulating Hormone (TSH) 1.275 uiU/mL (0.358-3.740) Objective HEAD AND NECK: No JVD. LUNGS: Clear. CARDIOVASCULAR: Regular S1 and S2 with no gallop or murmur. ABDOMEN: Soft. EXTREMITIES: No pitting edema. Srikanth Wise MD Apr 19, 2018 14:12
[2018-04-19] MEDS ORDERED: Lisinopril 20mg tab ORAL SCH (18:00)
--- NOTE | 2018-04-19 20:15 | Discharge Summary ---
DATE OF ADMISSION: 04/17/2018 DATE OF DISCHARGE: 04/19/2018 HOSPITAL COURSE: This is a 62-year-old very delightful gentleman with past medical history significant for end-stage renal disease, on hemodialysis, history of hypertension, dyslipidemia, and diabetes type 2, who has presented to the hospital after syncopal episode. The patient was initially was visited in the ER at the [facility] emergency room and then subsequently was transferred to the [facility]. Shortly after initial evaluation, the patient was admitted to the hospital with a syncopal episode. Throughout the hospital course, the patient was followed by Dr. Tyler Donis from Nephrology and Dr. Margarette Ortiz, Pulmonary Critical Care and Dr. Srikanth Wise from Cardiology Electrophysiology. The patient's status improved and subsequently, had a dialysis and was discharged home today to be followed as outpatient. FINAL DIAGNOSES: 1. Syncope. 2. Hypertension. 3. Dyslipidemia. 4. End-stage renal disease, on hemodialysis. 5. Diabetes type 2. MEDICATION AT DISCHARGE: Continue discharge medication list. ACTIVITY: As tolerated. DIET: An 1800 ADA cardiorenal diet. FOLLOWUP: The patient was advised to follow up with , his primary student development advisor, as outpatient. Vic Luu M.D. DR: BEBO JOB#: [id number] CC:
--- NOTE | 2018-04-22 11:40 | Cardiology Report ---
APPROVED REPORT EXAM: Two-dimensional and M-mode echocardiogram with Doppler and color Doppler. INDICATION Syncope M-Mode DIMENSIONS IVSd1.5 (0.7-1.1cm)Left Atrium (MM)3.2 (1.6-4.0cm) LVDd5.2 (3.5-5.6cm)Aortic Root3.4 (2.0-3.7cm) PWd1.6 (0.7-1.1cm)Aortic Cusp Exc.1.7 (1.5-2.0cm) IVSs1.6 cm LVDs3.3 (2.5-4.0cm) PWs2.0 cm Normal left ventricular chamber size, systolic function and wall motion . Left ventricular ejection fraction estimated to be 55-60%. No evidence of left ventricular hypertrophy. No evidence of pericardial effusion. All other cardiac chamber sizes are within normal limits. Focal aortic valve sclerosis with adequate cusp excursion. Thickened mitral valve leaflets with normal excursion. pulmonic valve not well visualized. Normal tricuspid valve structure. IVC at normal size with physiologic collapse. A color flow and spectral Doppler study was performed and revealed: Mild aortic regurgitation. Mild mitral regurgitation. Normal left ventricular diastolic function . Mild tricuspid regurgitation. Tricuspid systolic velocities suggests peak right ventricular systolic pressure of 41mmHg,consistent with mild pulmonary hypertension.
== END 2018-04-19 13:05 | disposition home or self-care (01) | DRG 70 ==
LOC: 2E 18:40
PROC: 5A1D70Z Performance of Urinary Filtration, Intermittent, Less than 6 Hours Per Day (ICD-10-PCS; principal; 2018-04-19)
DX: G93.40 Encephalopathy, unspecified (principal); N18.6 End stage renal disease; I12.0 Hypertensive chronic kidney disease with stage 5 chronic kidney disease or end stage renal disease; R55 Syncope and collapse; E11.22 Type 2 diabetes mellitus with diabetic chronic kidney disease; Z99.2 Dependence on renal dialysis; E78.5 Hyperlipidemia, unspecified; Z79.82 Long term (current) use of aspirin; F32.9 Major depressive disorder, single episode, unspecified
CPT/HCPCS: 36415; 80053; 80061; 82607; 82728; 82746; 82977; 83036; 83540; 83550; 83735; 83880; 84100; 84443; 84484; 84550; 85025; 86140; 87081; 93005; 93306; 93880; J1815